=== PATIENT | female | born 1990 | race Caucasian/White ===

== ENCOUNTER 2019-05-18 10:20 | Emergency (ER) | payer OTHER ==
[~2019-05-18] VITALS: Ht 170.2 cm; Wt 104.3 kg
[2019-05-18] MEDS ORDERED: AMOXICILLIN 50500 MG PO ×2 (11:13→11:26)
[2019-05-18 11:38] VITALS: BP 134/82
== END 2019-05-18 11:39 | disposition home or self-care (01) ==
LOC: M.ERS 10:20
DX: K04.7 Periapical abscess without sinus (principal)